=== PATIENT | male | born 1995 | race Caucasian/White ===

== ENCOUNTER 2017-08-01 09:28 | Emergency (ER) | payer MEDICAID, OTHER ==
[~2017-08-01] VITALS: Ht 188 cm; Wt 105.0 kg
[~2017-08-01 09:28] MED LIST: BACT2CRE TOP; CLIN150 PO; DOXY100T18 PO; GUAN1TAB PO; LACT PO; LITH300 PO; MUPI2%T TOP; SYNT50TA PO
[2017-08-01 09:32] VITALS: BP 155/72; PULSE 104; RESP 16; TEMP 98.8; O2SAT 97
[2017-08-01] MEDS ORDERED: LITH600C PO ×2 (09:40)
[2017-08-01] MEDS ORDERED: ABIL20TA5 PO (09:40)
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
[2017-08-01] MEDS ORDERED: KETOROLAC TROMETHAMINE 30 MG/ML (IVP) VIAL IVP ONE (10:00)
[2017-08-01] MEDS ORDERED: SODIUM CHLORIDE 0.9% FLUSH 10 ML FLUSH IVF PRN (10:00)
[2017-08-01] MEDS ORDERED: CLINDAMYCIN INJ 900 MG in SODIUM CHLORIDE 0.9% INJ 100 ML IV ONE (10:00)
[2017-08-01] MEDS ORDERED: CLINDAMYCIN 900 MG/NS PREMIX 50 ML IV ONE (10:00)
--- NOTE | 2017-08-01 10:23 | RADRPT ---
EXAM DATE/TIME: 08/01/2017 09:53 [facility] COMPARISON: No previous studies available for comparison. INDICATIONS : Left knee pain with redness and swelling post dropping a dresser on leg. MEDICAL HISTORY : None. SURGICAL HISTORY : None. ENCOUNTER: Initial ACUITY: 2 days PAIN SCORE: 10/10 LOCATION: Left anterior patella FINDINGS: Four view examination of the left knee demonstrates no evidence of fracture or dislocation. Bony min eralization is normal. The articular surfaces are intact. The suprapatellar soft tissues have a nor mal configuration. CONCLUSION: Marked soft tissue swelling of the patella without definite fracture. Kali Zamudio MD FACR on August 01, 2017 at 10:17 Board Certified Radiologist. This report was verified electronically.
[2017-08-01 10:30] LABS: AUTOMATED NEUTROPHIL # 8.1 TH/MM3 (1.8-7.7); BASOPHIL % 0.4 % (0.0-2.0); EOSINOPHIL % 0.2 % (0.0-4.0); HEMATOCRIT 46.9 % (39.0-51.0); HEMOGLOBIN 15.4 GM/DL (13.0-17.0); MEAN CELL VOLUME 89.9 FL (80.0-100.0); MEAN CORPUSCULAR HEMOGLOBIN 29.6 PG (27.0-34.0); MEAN CORPUSCULAR HGB CONC 32.9 % (32.0-36.0); MONO % 12.6 % (0.0-8.0); MONOCYTE # 1.5 TH/MM3 (0-0.9); NEUT % 69.8 % (16.0-70.0); PLATELET COUNT 238 TH/MM3 (150-450); RED BLOOD COUNT 5.22 MIL/MM3 (4.50-5.90); RED CELL DISTRIBUTION WIDTH 12.1 % (11.6-17.2); WHITE BLOOD COUNT 11.6 TH/MM3 (4.0-11.0)
[2017-08-01 10:41] LABS: CALCIUM 9.2 MG/DL (8.5-10.1)
[2017-08-01 10:42] LABS: BICARBONATE 28.5 MEQ/L (21.0-32.0)
[2017-08-01 10:45] LABS: CREATININE 0.97 MG/DL (0.60-1.30)
[2017-08-01] MEDS ORDERED: SODIUM CHLOR 0.9% 1000 ML INJ 1,000 ML IV ONE (10:45)
[2017-08-01] MEDS ORDERED: TYLE325T PO (11:33)
[2017-08-01] MEDS ORDERED: CLIN150C14 PO (11:33)
[2017-08-01 11:39] VITALS: BP 118/57; PULSE 87; RESP 20; O2SAT 98
== END 2017-08-01 11:54 | disposition home or self-care (01) ==
LOC: PHEFT 09:28
DX: L02.416 Cutaneous abscess of left lower limb (principal); L03.116 Cellulitis of left lower limb; B95.62 Methicillin resistant Staphylococcus aureus infection as the cause of diseases classified elsewhere; D72.829 Elevated white blood cell count, unspecified; R11.2 Nausea with vomiting, unspecified; F90.9 Attention-deficit hyperactivity disorder, unspecified type; F31.9 Bipolar disorder, unspecified; Z86.19 Personal history of other infectious and parasitic diseases
CPT/HCPCS: 10061; 73564; 80048; 85025; 86403; 87040; 87070; 87186; 96361; 96365; 96375; 99284; J1885; J7030; 87205

== ENCOUNTER 2017-12-01 08:47 | Emergency (ER) | payer OTHER | END 2017-12-01 09:34 | disposition home or self-care (01) | LOC: NEPK 08:47 | DX: L02.415 Cutaneous abscess of right lower limb (principal); F31.9 Bipolar disorder, unspecified; F17.210 Nicotine dependence, cigarettes, uncomplicated; Z86.14 Personal history of Methicillin resistant Staphylococcus aureus infection; Z86.19 Personal history of other infectious and parasitic diseases; Z88.0 Allergy status to penicillin | CPT/HCPCS: 10060; 99283-25 ==